=== PATIENT | female | born 1995 | race Caucasian/White ===

== ENCOUNTER 2018-10-06 20:55 | Emergency (ER) | payer BC, OTHER ==
[~2018-10-06] VITALS: Ht 162.6 cm; Wt 67.8 kg
[~2018-10-06 20:55] MED LIST: BEN25 PO; CYCL10TA7 PO; DOXY100T20 PO; NAPR-985 PO; TRIA15CR55 TOP
[2018-10-06 21:03] VITALS: BP 136/76; PULSE 80; RESP 16; Ht 162.6 cm; Wt 67.8 kg
--- NOTE | 2018-10-06 21:24 | ERD ---
ER Documentation Chief Complaint Chief Complaint insect bite to R thigh x3 days. no fever HPI 23-year-old female presents with some redness and irritation on her right thigh for last 3 days. She believes she may have been bitten by an insect while carrying some linens. She denies fevers, vomiting, shortness of breath. ROS All systems reviewed and are negative except as per history of present illness. Medications Home Meds Active Scripts Doxycycline Hyclate* (Doxycycline Hyclate*) 100 Mg Tablet.dr, 100 MG PO BID for 7 Days, TAB Prov:TANYA DANIEL MD 10/06/18 Diphenhydramine Hcl* (Benadryl*) 25 Mg Cap, 25 MG PO Q6, #15 CAP Prov:TANYA DANIEL MD 10/06/18 Triamcinolone Acetonide (Triamcinolone Acetonide) 0.1% - 15 Gm Cream.gm., 1 APPLIC TOP QID for 5 Days, #1 TUB Prov:TANYA DANIEL MD 10/06/18 Naproxen* (Naprosyn*) 500 Mg Tablet, 500 MG PO BID PRN for PAIN AND/OR INFLAMMATION, #30 TAB Prov:GUNNER HERNANDEZ PA-C 10/02/15 Cyclobenzaprine Hcl* (Cyclobenzaprine Hcl*) 10 Mg Tablet, 10 MG PO BID, #10 TAB Prov:GUNNER HERNANDEZ PA-C 10/02/15 Reported Medications [None] No Conflict Check 06/15/09 Allergies Allergies: Coded Allergies: No Known Allergies (Verified Allergy, Mild, 06/15/09) PMhx/Soc Medical and Surgical Hx: pt denies Medical Hx, pt denies Surgical Hx History of Surgery: No Anesthesia Reaction: No Hx Neurological Disorder: No Hx Respiratory Disorders: No Hx Cardiac Disorders: No Hx Psychiatric Problems: No Hx Miscellaneous Medical Probl: No Hx Alcohol Use: No Hx Substance Use: No Hx Tobacco Use: No Smoking Status: Never smoker FmHx Family History: No diabetes, No coronary disease, No other Physical Exam Vitals Vital Signs Date Temp Pulse Resp B/P (MAP) Pulse Ox O2 O2 Flow FiO2 Time Delivery Rate 10/06/18 97.6 80 16 136/76 99 21:03 (96) Physical Exam Const: No acute distress Head: Atraumatic Eyes: Normal Conjunctiva ENT: Normal External Ears, Nose and Mouth. Neck: Full range of motion. No meningismus. Resp: Clear to auscultation bilaterally Cardio: Regular rate and rhythm, no murmurs Abd: Soft, non tender, non distended. Normal bowel sounds Skin: No petechiae or purpura.. Petechial erythematous lesion on the right anterior thigh with mild swelling. No induration, streaking or warmth. Back: No midline or flank tenderness Ext: No cyanosis, or edema Neur: Awake and alert Psych: Normal Mood and Affect Procedures/MDM Patient presents with a skin lesion on her right anterior thigh after possible insect bite 3 days ago. She may have early infection although suspect local reaction. She has no signs of purpura, necrotizing fasciitis, anaphylaxis, life-threatening rashes. She will be treated with a short course of doxycycline, Benadryl, triamcinolone, recommendations for cold compresses, primary care follow-up and return precautions. The patient was stable with no new complaints during the ER course. Clinically, there is no current evidence to suggest meningitis, sepsis, acute abdomen, pneumonia, stroke, acute coronary syndrome, pulmonary embolism, aortic dissection or any other emergent condition appearing to require further evaluation or hospitalization. Patient counseled regarding my diagnostic impression and care plan. Prior to discharge all questions answered. Pt agrees with treatment plan and understands strict return precautions. Pt is instructed to follow up with primary care provider within 24- 48 hours. Precautionary instructions provided including instructions to return to the ER if not improving or for any worsening or changing symptoms or concer ns. Disclaimer: Inadvertent spelling and grammatical errors are likely due to EHR/dictation software use and do not reflect on the overall quality of patient care. Also, please note that the electronic time recorded on this note does not necessarily reflect the actual time of the patient encounter. Departure Diagnosis: Primary Impression: Bite wound Condition: Stable Patient Instructions: Insect Bites and Stings, Insect Sting/Bite, Infected Additional Instructions: We will treat for infection although may be local reaction to insect bite. Recheck for worsening redness, fevers, worsening symptoms. Apply cold compresses at home. TANYA DANIEL MD Oct 06, 2018 21:24
== END 2018-10-06 22:25 | disposition home or self-care (01) ==
LOC: FTE 20:55
DX: S70.361A Insect bite (nonvenomous), right thigh, initial encounter (principal); W57.XXXA Bitten or stung by nonvenomous insect and other nonvenomous arthropods, initial encounter; Y92.9 Unspecified place or not applicable
CPT/HCPCS: 99283